=== PATIENT | female | born 2000 | race Caucasian/White ===

== ENCOUNTER 2019-06-12 14:22 | Emergency (ER) | payer OTHER, SELFPAY ==
[2019-06-12 14:24] VITALS: BP 144/71; PULSE 94; RESP 15; TEMP 36.8; O2SAT 98; BMI 25.8
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
--- NOTE | 2019-06-12 14:40 | XR_ITS ---
WS: [id number] CHEST XRAY TECHNIQUE: Portable chest. CLINICAL INFORMATION: Chest pain COMPARISON: None. FINDINGS: Heart: Normal cardiac silhouette. Lungs: Lungs are clear. No consolidation or pleural effusion. Bones: Normal visualized bony structures. XR/XR chest 1V portable [id number] IMPRESSION: Normal chest
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
[2019-06-12 15:27] LABS: Basophils % 0.6 %; Eosinophils # 0.1 10^3/uL (0.0-0.8); Eosinophils % 1.4 %; Hematocrit 41.5 % (37.0-47.0); Hemoglobin 13.2 g/dL (11.5-15.3); Lymphocytes # 1.6 10^3/uL (0.8-4.8); Lymphocytes % 32.6 %; Mean Corpuscular HGB Conc 31.8 g/dL (30.0-36.0); Mean Corpuscular Hemoglobin 27.7 pg (28.0-34.0); Mean Corpuscular Volume 87.2 fL (81-99); Mean Platelet Volume 11.5 fL (7.4-10.4); Monocytes # 0.4 10^3/uL (0.2-0.9); Neutrophils # 2.9 10^3/uL (1.8-7.7); Neutrophils % 58.2 %; Nucleated Red Blood Cells % 0 %; Platelet Count 195 10^3/cmm (130-400); Red Blood Count 4.76 10^6/uL (4.1-5.3); Red Cell Distribution Width 13.2 % (12.1-15.1)
[2019-06-12 15:44] LABS: Anion Gap 13.7 (5-19); Blood Urea Nitrogen 10 mg/dL (6-20); Calcium 9.9 mg/dL (8.5-10.5); Carbon Dioxide 25 mmol/L (22-29); Chloride 103 mmol/L (98-107); Glomerular Filtration Rate 90.5 mL/min (90-130); Glucose 94 mg/dL (65-115); Osmolality Calculated 282 mOsm/kg (285-295); Potassium 3.7 mmol/L (3.5-5.1); Sodium 138 mmol/L (136-145)
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
[2019-06-12 16:02] LABS: Add Urine Microscopic? NO
[2019-06-12] MEDS: iohexol 300 mg/mL 100 mL Btl IV (16:19)
[2019-06-12 16:22] LABS: Bilirubin Urine Neg (NEGATIVE); Blood Urine Neg (Negative); Glucose Urine UA Norm (Normal); Ketones Urine Negative (Negative); Leukocyte Esterase Urine Negative (Negative); Nitrate Urine Negative (Negative); Protein Urine Neg (Negative); Urine Appearance SL Hazy (CLEAR); Urine Color Yellow (Yellow); Urobilinogen Urine Norm (Negative); pH Urine 6.5 (5-7)
[2019-06-12 16:59] VITALS: BP 132/84; PULSE 84; RESP 18; TEMP 36.4; O2SAT 97
== END 2019-06-12 17:00 | disposition home or self-care (01) ==
PROVIDERS: Emergency Provider Family Medicine; PCP Emergency Medicine
DX: S22.20XA Unspecified fracture of sternum, initial encounter for closed fracture (principal); S22.000A Wedge compression fracture of unspecified thoracic vertebra, initial encounter for closed fracture; V86.59XA Driver of other special all-terrain or other off-road motor vehicle injured in nontraffic accident, initial encounter
CPT/HCPCS: 12345; 36415; 71045; 71120; 71260; 72072; 80048; 81003; 85025; 99282; 99283; Q9967

== ENCOUNTER 2019-07-19 18:59 | Emergency (ER) | payer OTHER, SELFPAY ==
[2019-07-19 19:04] VITALS: BP 139/85; PULSE 106; RESP 18; TEMP 36.7; O2SAT 97; BMI 23.5
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
[2019-07-19 20:55] LABS: HIV 1 & 2 Antibody Non-Reactive (Non-Reactiv); HIV 1 & 2 Antigen Non-Reactive (Non-Reactiv)
[2019-07-19 21:02] LABS: Hepatitis A Antibody IgM Non-Reactive (Nonreactive); Hepatitis B Core AB, Total Non-Reactive (Nonreactive); Hepatitis B Surface AB 3.5 (0-8.5); Hepatitis B Surface Antigen Non-Reactive (Nonreactive); Hepatitis C Virus Antibody Non-Reactive (Nonreactive)
== END 2019-07-19 21:12 | disposition home or self-care (01) ==
PROVIDERS: Emergency Provider Emergency Medicine
DX: Z77.21 Contact with and (suspected) exposure to potentially hazardous body fluids (principal)
CPT/HCPCS: 12345; 36415; 86705; 86706; 86709; 86803; 87340; 87806; 99281; 99282

== ENCOUNTER 2024-04-13 13:31 | Outpatient (CLI) | payer BC, OTHER, SELFPAY ==
--- NOTE | 2024-04-13 13:35 | MRR_ITS ---
PROCEDURE INFORMATION: Exam: MR Pelvis Without and With Contrast Exam date and time: 04/13/2024 2:07 PM Age: 24 years old Clinical indication: Condition or disease; Ovarian conditions; Type of cyst not specified; Prior surgery; Surgery date: 1-6 months; Surgery type: Egg retrieval; Additional info: Ovarian cyst right side TECHNIQUE: Imaging protocol: Magnetic resonance imaging of the pelvis without and with contrast. Contrast material: MULTIHANCE; Contrast volume: 20 ml; Contrast route: INTRAVENOUS (IV); COMPARISON: No relevant prior studies available. FINDINGS: Intraperitoneal space: Moderate volume free fluid in the lower abdomen and pelvis. Urinary bladder: The bladder is unremarkable. Reproductive: Right adnexal structure is unremarkable. The right ovary is not distinctly identified. Left ovary is enlarged, measuring 7.1 x 7.2 x 6.4 cm(AP x CC x TV).. Multiple enlarged follicles, largest measuring 3.6 x 2.4 cm axial. Some of the follicles with internal T1 hyperintensity consistent with hemorrhagic or proteinaceous content. Mass effect from enlarged left ovary, with mild rightward displacement of the uterus. The uterus is unremarkable. Lymph nodes: No pelvic lymphadenopathy. Bones/joints: Unremarkable. No suspicious lesions. No acute fractures. Soft tissues: Unremarkable. MR/MR pelvis wo/w con [id number] IMPRESSION: 1. Enlarged left ovary with multiple prominent follicles. Can be seen with ovarian hyperstimulation among other entities. Recommend correlation. 2. Right ovary is not distinctly identified. Right adnexa is unremarkable. 3. Moderate volume free fluid in the lower abdomen and pelvis. May be related to recent ovarian cyst rupture. Can also be seen with ovarian hyperstimulation syndrome.
== END 2024-04-13 13:32 | disposition home or self-care (01) ==
LOC: RAD 13:34
PROVIDERS: Visit Provider Obstetrics & Gynecology
DX: N83.201 Unspecified ovarian cyst, right side (principal); N83.8 Other noninflammatory disorders of ovary, fallopian tube and broad ligament; R93.89 Abnormal findings on diagnostic imaging of other specified body structures
CPT/HCPCS: 72197